=== PATIENT | male | born 1965 | race Caucasian/White ===

== ENCOUNTER 2019-01-17 12:27 | Emergency (ER) | payer MEDICAID, OTHER ==
[~2019-01-17] VITALS: Ht 180.3 cm; Wt 122.0 kg
[~2019-01-17 12:27] MED LIST: GLIP5TAB10 PO; LISI2.5T PO; METF10002 PO; MORP-52 PO; OXYC10TA6 PO; TIZA2TAB PO
[2019-01-17] MEDS ORDERED: DIAZEPAM 5 MG TABLET PO ONE (14:00)
[2019-01-17] MEDS ORDERED: KETOROLAC 30 MG/1 ML IM ONE (14:00)
[2019-01-17] MEDS ORDERED: KETOROLAC 30 MG/1 ML ONE (14:05)
[2019-01-17] MEDS ORDERED: DIAZEPAM 5 MG TABLET ONE (14:05)
--- NOTE | 2019-01-17 14:55 | NUR ---
TASK RN: DC EDUCATION PROVIDED, PT DEMONSTRATES UNDERSTANDING. PT AMBULATED STEADILY TO DC WITH RN AND FAMILY Addendum: 01/17/19 at 1456 by MIGUELINA MOTHER TO TRANSPORT PT HOME
[2019-01-17 14:56] VITALS: BP 149/70
== END 2019-01-17 14:58 | disposition home or self-care (01) ==
LOC: ED 14:52
DX: S39.012A Strain of muscle, fascia and tendon of lower back, initial encounter (principal); G89.29 Other chronic pain; E11.9 Type 2 diabetes mellitus without complications; I10 Essential (primary) hypertension; Z87.891 Personal history of nicotine dependence; X58.XXXA Exposure to other specified factors, initial encounter; Y93.89 Activity, other specified; Y92.89 Other specified places as the place of occurrence of the external cause; Y99.8 Other external cause status
CPT/HCPCS: 72110; 96372; 99283; J1885